=== PATIENT | female | born 1960 | race Caucasian/White ===

== ENCOUNTER 2018-12-25 15:38 | Inpatient (IN) | payer BC, OTHER ==
[~2018-12-25] VITALS: Ht 157.5 cm; Wt 67.6 kg
--- NOTE | 2018-12-25 15:43 | NUR ---
PT BIB STAFF S/P WALKED INTO A WALL AND FELL. + CHEST WALL AND FOREHEAD PAIN PER CO WORKER, SYNCOPAL EPISODE, PT IS AAOX4, NOT IN RESPIRATORY DISTRESS, HOOKED TO MONITOR, KEPT RESTED AND COMFORTABLE, WILL CONITNUE TO MONITOR.
--- NOTE | 2018-12-25 15:50 | NUR ---
AT BEDSIDE FOR EVAL.
--- NOTE | 2018-12-25 16:00 | NUR ---
IV LINE ESTABLISHED, BLOOD DRAWNED AND SENT TO LAB.
--- NOTE | 2018-12-25 16:03 | NUR ---
PT IS WHEELED TO CT SCAN VIA [facility].
[2018-12-25 16:09] LABS: BASOPHILS # (AUTO) 0.1 /CMM (0.0-0.2); BASOPHILS % (AUTO) 0.6 % (0.0-2.0); HEMATOCRIT 39 % (33-45); LYMPHOCYTES # (AUTO) 4.1 /CMM (0.8-4.8); LYMPHOCYTES % (AUTO) 43.5 % (20.0-44.0); MEAN CORPUSCULAR HGB CONC 34 g/dl (31.0-36.0); MEAN CORPUSCULAR VOLUME 94 fL (82-100); MONOCYTES # (AUTO) 0.7 /CMM (0.1-1.30); NEUTROPHILS # (AUTO) 4.3 /CMM (1.8-8.9); NEUTROPHILS % (AUTO) 45.9 % (43.0-81.0); PLATELET COUNT (AUTO) 237 /CMM (150-450); RED BLOOD CELL COUNT(AUTO) 4.14 MIL/uL (4.0-5.2); WHITE BLOOD COUNT (AUTO) 9.4 K/uL (4.3-11.0)
[2018-12-25 16:20] LABS: CALCIUM, SERUM 9.1 mg/dL (8.5-10.1); CARBON DIOXIDE 31 mmol/L (21-32); CHLORIDE 101 mmol/L (98-107); CREATININE 0.8 mg/dL (0.6-1.3); GLUCOSE 97 mg/dL (74-106); POTASSIUM 3.9 mmol/L (3.5-5.1); SODIUM SERUM 137 mmol/L (136-145); UREA NITROGEN, BLOOD 17 mg/dL (7-18)
--- NOTE | 2018-12-25 16:49 | NUR ---
room [facility]
--- NOTE | 2018-12-25 17:44 | NUR ---
REPORT GIVEN TO AMADA YOUNG FOR LIGIA.
[2018-12-25] MEDS ORDERED: IV NS 0.9% 1,000 ML IV PRN (18:40)
[2018-12-25] MEDS ORDERED: MAGNESIUM HYDROXIDE 30 ML UDC PO PRN (19:00)
[2018-12-25] MEDS ORDERED: ZOLPIDEM TARTRATE 5 MG TABLET PO PRN (19:00)
[2018-12-25] MEDS ORDERED: MAG HYDROX/AL HYDROX/SIMETH 30 ML UDC PO PRN (19:00)
[2018-12-25] MEDS ORDERED: ONDANSETRON HCL/PF 4 MG/2 ML VIAL IVP PRN (19:00)
[2018-12-25] MEDS ORDERED: HYDROCODONE/APAP 5/325MG 1 EACH TABLET PO PRN (19:00)
[2018-12-25] MEDS ORDERED: ACETAMINOPHEN 325 MG TABLET PO PRN (19:00)
[2018-12-25] MEDS ORDERED: Z GUARD REMEDY 2 OZ OINT TP PRN (19:00)
--- NOTE | 2018-12-25 19:10 | NUR ---
CHANGE OF SHIFT REPORT Patient in bed, awake. Tolerating RA, Sinus rhythm in the Tele monitor. Patient reports discomfort in her mid chest, denies shortness of breath. Ice pack to mid chest. Fall precaution maintained.
[2018-12-25] MEDS ORDERED: MORPHINE SULFATE INJ 2 MG/ML DISP.SYRIN IV PRN (19:30)
[2018-12-25 20:00] VITALS: BP 176/85
[2018-12-25 20:16] VITALS: BP 176/85
[2018-12-25] MEDS ORDERED: ENOXAPARIN SODIUM 40 MG/0.4 ML DISP.SYRIN SQ SCH (21:00)
[2018-12-25 21:42] VITALS: BP 130/59
[2018-12-25 21:45] VITALS: BP 130/59
[2018-12-26] VITALS: BP 116/58
[2018-12-26 04:00] VITALS: BP 130/64
[2018-12-26 06:23] LABS: BASOPHILS % (AUTO) 0.4 % (0.0-2.0); EOSINOPHILS % (AUTO) 2.2 % (0.0-6.0); HEMATOCRIT 34 % (33-45); HEMOGLOBIN 11.5 g/dL (11.5-14.8); LYMPHOCYTES # (AUTO) 2.3 /CMM (0.8-4.8); LYMPHOCYTES % (AUTO) 35.6 % (20.0-44.0); MEAN CORPUSCULAR HGB CONC 34 g/dl (31.0-36.0); MEAN CORPUSCULAR VOLUME 92 fL (82-100); MONOCYTES # (AUTO) 0.5 /CMM (0.1-1.30); MONOCYTES % (AUTO) 8.1 % (2.0-12.0); NEUTROPHILS # (AUTO) 3.4 /CMM (1.8-8.9); NEUTROPHILS % (AUTO) 53.7 % (43.0-81.0); PLATELET COUNT (AUTO) 191 /CMM (150-450); RED BLOOD CELL COUNT(AUTO) 3.68 MIL/uL (4.0-5.2); WHITE BLOOD COUNT (AUTO) 6.4 K/uL (4.3-11.0)
--- NOTE | 2018-12-26 06:29 | NUR ---
END OF SHIFT REPORT Patient in bed, stable oxygen saturation on RA. Sinus Rhythm, Sinus Sravan in the Tele monitor, denies chest pain. Back pain controlled with PRN [place]. IVF infusing. Hourly rounds, ambulates independently. Fall precaution maintained.
[2018-12-26 06:47] LABS: CALCIUM, SERUM 8.7 mg/dL (8.5-10.1); CARBON DIOXIDE 28 mmol/L (21-32); CHLORIDE 107 mmol/L (98-107); CREATININE 0.6 mg/dL (0.6-1.3); GLUCOSE 91 mg/dL (74-106); MAGNESIUM 2.2 mg/dL (1.8-2.4); PHOSPHORUS 3.7 mg/dL (2.5-4.9); POTASSIUM 3.9 mmol/L (3.5-5.1); SODIUM SERUM 141 mmol/L (136-145); UREA NITROGEN, BLOOD 11 mg/dL (7-18)
[2018-12-26 06:48] LABS: CHOLESTEROL 153 mg/dL (<200); HDL CHOLESTEROL 45 mg/dL (40-60); LDL 93 mg/dL (0-99); TRIGLYCERIDES 81 mg/dL (30-150)
[2018-12-26 08:00] VITALS: BP 155/82
--- NOTE | 2018-12-26 08:00 | NUR ---
REFINERY OPERATOR ALKYLATION AM NOTES Patient in bed, stable oxygen saturation on RA. Sinus Rhythm, Sinus Sravan in the Tele monitor, denies chest pain. Back pain controlled with PRN [place]. IVF infusing. Ambulates independently. Fall precaution maintained. Call light placed within reach.
[2018-12-26 10:41] LABS: FERRITIN 52 ng/mL (8-388)
[2018-12-26 10:46] LABS: IRON, SERUM 101 ug/dl (50-175); TOTAL IRON BINDING CAPACITY 271 ug/dl (250-450)
--- NOTE | 2018-12-26 15:40 | NUR ---
Patient is an employee at this hospital.She is ambulatory and independent with adl's. Discharged home today, no dc planning needs identified. Was advised to f/u with pcp in 7-10 days. Addendum: 12/26/18 at 2054 by ADI BEAR RN Amended: Links added.
[2018-12-26 16:00] VITALS: BP 136/72
--- NOTE | 2018-12-26 17:49 | NUR ---
DISCHARGE INSTRUCTIONS GIVEN TO PT.WITH STABLE V/S.DENIES ANY DIZZINESS,DISCOMFORT OR DISTRESS. IV H/L REMOVED TO RT ARM WITH NO BLEEDING NOTED.AWAITING FOR HER TO PICK HER UP.CALL LIGHT PLACED WITHIN REACH.
--- NOTE | 2018-12-26 19:21 | NUR ---
PT'S ARRIVED TO MANAGER [employer]POR[employer] RESPONSIBILITY PT WHO IS EATING DINNER.PT RESTING AT THE BEDSIDE.
--- NOTE | 2018-12-26 19:27 | NUR ---
DISCHARGED PT HOME WITH STABLE V/S ACCOMPANIED BY HER AMBULATING WELL WITH STEADY GAIT WITH NO C/O DIZZINESS.PT REFUSED TO BE BROUGHT DOWN IN A WHEELCHAIR EVEN WHEN OFFERED.
== END 2018-12-26 19:00 | disposition home or self-care (01) | DRG 74 ==
LOC: ER 15:40 → TELE 18:00 → MED 12-26 10:55
PROVIDERS: ADMIT Hospitalist; ATTEND Hospitalist
DX: G90.8 Other disorders of autonomic nervous system (principal); W01.198A Fall on same level from slipping, tripping and stumbling with subsequent striking against other object, initial encounter; D64.9 Anemia, unspecified; Y93.9 Activity, unspecified; Y92.239 Unspecified place in hospital as the place of occurrence of the external cause
CPT/HCPCS: 36415; 70450-TC; 71045-TC; 72125-TC; 80048-TC; 80061-TC; 82728-TC; 83540-TC; 83735-TC; 84100-TC; 84443-TC; 84484-TC; 85025-TC; 85730-TC; 87081-TC; 93307-TC; 93880-TC; G0378; J1650; J7030

== ENCOUNTER 2019-01-30 11:28 | Outpatient (CLI) | payer BC | END 2019-01-30 23:59 | disposition home or self-care (01) | LOC: RAD 11:28 | PROVIDERS: ATTEND Family Medicine | DX: M17.11 Unilateral primary osteoarthritis, right knee (principal); M25.461 Effusion, right knee; M76.891 Other specified enthesopathies of right lower limb, excluding foot; M19.011 Primary osteoarthritis, right shoulder; M75.81 Other shoulder lesions, right shoulder | CPT/HCPCS: 73030-TC; 73562 ==